=== PATIENT | male | born 2000 | race Two or more races ===

== ENCOUNTER 2024-06-19 11:51 | Emergency (ER) | payer OTHER ==
[~2024-06-19] VITALS: Ht 177.8 cm; Wt 90.0 kg
[2024-06-19 12:02] VITALS: BP 125/65; PULSE 81; RESP 15; O2SAT 99
--- NOTE | 2024-06-19 12:11 | Physician Documentation ---
History of Present Illness ~ Chief Complaint: Laceration Stated Complaint: FOOT LAC FROM SAW Time Seen by MD: 12:06 HPI Patient is seen today with complaints of a laceration that is 4 cm in length to his left foot from a skilled saw through his boot. Patient has no other concern or complaint at this time. Patient applied his own bandage or pressor dressing to stop the bleeding. Medication Reconciliation Allergies: Coded Allergies: No Known Allergies (Unverified , 06/19/24) Review of Systems Constitutional: Denies: chills, fever, weakness Eyes: Denies: pain, blurred vision ENT: Denies: ear pain, nose pain, throat pain, mouth pain Respiratory: Denies: cough, shortness of breath Cardiovascular: Denies: chest pain, palpitations Gastrointestinal: Denies: abdominal pain, nausea, vomiting Genitourinary: Denies: burning, dysuria Male Genitalia: Denies: penile discharge, testicular pain Neurological: Denies: headache, dizziness Musculoskeletal: Denies: pain, swelling Integumentary: Denies: rash, lesions Allergic/Immunologic: Denies: hives, itching Hematologic/Lymphatic: Denies: no symptoms reported Psychiatric: Denies: depression, anxiety Physical Exam Vital Signs: Temperature: 98.7, Heart Rate: 81, Respiratory Rate: 15, BP: 125/65, Pulse Oximetry: 99, Weight: 90.000 Oxygen Flow Rate: 0 General Appearance 2qGeneral: Awake and Alert, no acute distress. HEENT: Conjunctiva pink, Sclera clear, Mucus Membranes moist. Neck: Supple without masses and tenderness. Resp: Unlabored. Lungs clear to auscultation bilaterally. Heart: Regular Rate and rhythm, normal S1 and S2 without murmur, rub or gallop. Musculoskeletal: Patient on exam has a 4 cm laceration to the medial aspect of his left great toe the level of the MTP joint to the IP joint. Patient is neurovascularly intact distally. Motor function is intact distally. Extremities: No cyanosis,clubbing or edema. Skin: Warm and Dry. Procedures Laceration/Wound Repair Laceration : Procedure Note Procedure note: Patient had 8 cc of 1% lidocaine with epinephrine used to achieve local anesthesia of the 4 cm laceration to the left great toe. Patient tolerated well. Wound was copiously irrigated using normal saline and iodine solution mixture. Running suture was used to achieve closure of 4 cm laceration. Adhesive bandage placed over repair site. Progress Results/Orders Results/Orders Orders - PEARL DUPREE Foot, Complete (3vw Min) (06/19/24 12:20) Completed Orders - PEARL DUPREE Lidocaine 1% W/Epi 1:100,000 (Xylocaine (06/19/24 12:09) Foot, Complete (3vw Min) (06/19/24 12:20) Vital Signs 06/19/24 12:02 Temp 98.7 Pulse 81 Resp 15 B/P (MAP) 125/65 Pulse Ox 99 O2 Flow Rate 0 EKG/XRAY/CT/US/VASC/MRI Bone/Soft Tissue X-Ray (Ext.) : Additional Comment X-ray of left foot shows no sign of acute fracture, bones in anatomic alignment, no osteolytic or blastic lesions. DIAGNOSTIC RADIOLOGY Patient: ZAKI WARD Medical Record: [id number] [facility] 2000, Age: 23 Sex: Male Location: ER Patient Status: [facility] ER Service Date/Time: 06/19/24/ 1220 Ordering Physician: PEARL DUPREE Exam: FOOT, COMPLETE (3VW MIN) EXAM: DI FOOT, COMPLETE (3VW MIN) HISTORY: left foot injury from saw blade COMPARISON: None TECHNIQUE: Three views of the left foot were performed. FINDINGS: No acute fracture or dislocation are identified about the left foot. IMPRESSION: 1. No acute fracture of the left foot. Electronically Signed by:SHAI ZAYAS MD Date & Time: 06/19/241248 Dictated by: SHAI ZAYAS MD Dictation date and time: 06/19/241248 Primary Care Provider: NO PRIMARY CARE PROVIDER cc: DUPREE,PEARL R PAC ~ Medical Decision Making Findings Patient is seen today with complaints of a laceration that is 4 cm in length to his left foot from a skilled saw through his boot. Patient has no other concern or complaint at this time. Patient applied his own bandage or pressor dressing to stop the bleeding. Running suture was used to repair laceration to left great toe. Patient tolerated well. Patient will follow up in 10 days for suture removal. Patient will monitor for signs of infection. Patient will return to ED with any worse bettie, concerning or changing symptoms. Departure Disposition: HOME / SELF CARE / HOMELESS Impression: Primary Impression: Toe laceration Qualified Codes: S91.112A - Laceration without foreign body of left great toe without damage to nail, initial encounter Condition: Improved Discharge Instructions: Laceration Care, Adult, [id number] Additional Instructions: Running suture was used to repair laceration to left great toe. Patient tolerated well. Patient will follow up in 10 days for suture removal. Patient will monitor for signs of infection. Patient will return to ED with any wo rsening, concerning or changing symptoms. Referrals: NO PRIMARY CARE PROVIDER (PCP) Signature Scribe Signature: No scribe Attestation: No scribe PEARL DUPREE PAC June 19, 2024 12:11
[2024-06-19] MEDS: LIDOcaine 1% W/epiNEPHrine 1:100,000 20ml vial SQ STA (12:16)
--- NOTE | 2024-06-19 12:52 | RADIOLOGY REPORT ---
EXAM: DI FOOT, COMPLETE (3VW MIN) HISTORY: left foot injury from saw blade COMPARISON: None TECHNIQUE: Three views of the left foot were performed. FINDINGS: No acute fracture or dislocation are identified about the left foot. IMPRESSION: 1. No acute fracture of the left foot.
[2024-06-19] MEDS: TETanus/Pertussis (Acell)/Diphther VAC/PF (Tdap-Adult) 0.5ml syringe IMVAC ONE (14:35)
[2024-06-19 14:40] VITALS: TEMP 98.7
== END 2024-06-19 14:42 | disposition home or self-care (01) ==
LOC: ER 11:52
DX: S91.112A Laceration without foreign body of left great toe without damage to nail, initial encounter (principal); X58.XXXA Exposure to other specified factors, initial encounter; Y93.89 Activity, other specified; Y92.89 Other specified places as the place of occurrence of the external cause; Y99.8 Other external cause status
CPT/HCPCS: 12002; 73630; 90471; 90715; 99283; J7030; A6258; A6449

== ENCOUNTER 2024-07-04 10:11 | Emergency (ER) | payer OTHER ==
[~2024-07-04] VITALS: Ht 177.8 cm; Wt 90.0 kg
[2024-07-04 10:14] VITALS: BP 110/66; PULSE 69; RESP 18; O2SAT 99
--- NOTE | 2024-07-04 11:50 | Physician Documentation ---
History of Present Illness ~ Chief Complaint: Wound Re-Check Stated Complaint: FOOT RECHECK Time Seen by MD: 11:25 HPI 23-year-old male presenting for wound check. Tetanus within 5 years?: No Medication Reconciliation Allergies: Coded Allergies: No Known Allergies (Unverified , 06/19/24) Review of Systems Constitutional: Denies: fever Physical Exam Vital Signs: Temperature: 97.7, Source: Temporal, Heart Rate: 69, Respiratory Rate: 18, BP: 110/66, Pulse Oximetry: 99, Weight: 90.000 Oxygen Flow Rate: 0 Physical Exam Well-appearing patient Well healing wound to the base of his left 1st distal metatarsal. No erythema no purulent drainage Progress Results/Orders Results/Orders Vital Signs 07/04/24 10:14 Temp 97.7 Pulse 69 Resp 18 B/P (MAP) 110/66 Pulse Ox 99 O2 Flow Rate 0 Medical Decision Making Additional info obtained from: old records Differential Dx:Considerations: Include: Abscess, Cellulitis, Healing wound Departure Disposition: HOME / SELF CARE / HOMELESS Impression: Primary Impression: Healing wound Additional Instructions: Your wound is healing well. Continue to keep it protected with bandages. Wren e your socks often. You may apply warm compresses to the area and keep it elevated. Return if redness spreads beyond the site Departure Forms: Excuse form Work or School Excused From: Work Excuse beginning now through the following date: July 04, 2024 Referrals: NO PRIMARY CARE PROVIDER (PCP) Signature Scribe Signature: No scribe Attestation: No scribe DECLAN AGUILAR MD July 04, 2024 11:50
[2024-07-04 12:13] VITALS: TEMP 97.7
== END 2024-07-04 12:18 | disposition home or self-care (01) ==
LOC: ER 10:12
DX: S80.922D Unspecified superficial injury of left lower leg, subsequent encounter (principal); X58.XXXD Exposure to other specified factors, subsequent encounter
CPT/HCPCS: 99281